=== PATIENT | male | born 1960 | race Two or more races ===

== ENCOUNTER 2018-01-16 13:01 | Outpatient (CLI) | payer OTHER ==
--- NOTE | 2018-01-16 15:03 | Diagnostic Imaging Report ---
Clinical Indication: Left lower quadrant pain Technique: Patient given oral contrast. IV administration nonionic contrast. Venous phase spiral acquisition obtained through the abdomen and pelvis. Multiplanar reconstructions were generated. Total dose length product 908.76 mGycm. CTDIvol(s) 18.6 mGy. Dose reduction achieved using automated exposure control Comparison: none Findings: There is fairly extensive colonic diverticulosis. No evidence of diverticulitis. There is equivocal mild wall thickening of the ascending and proximal transverse colon, although this is probably just an artifact of under distention. There is also equivocal slight wall thickening of the mid sigmoid colon, could likewise represent an artifact of under distention or could indicate some circular muscle hypertrophy. No pericolonic stranding to suggest colitis or diverticulitis No small bowel distention. Contrast is seen to have traversed the entirety of the GI tract. The appendix is not visualized; surgical clips and aaron adjacent to the cecum likely. Indicate prior appendectomy. No small bowel wall thickening. The distal esophagus, stomach, duodenum are unremarkable. The liver, gallbladder, bile ducts, pancreas, spleen, adrenals are unremarkable. There is a small cyst coming off of the upper pole of the right kidney another off of the lower pole. The kidneys demonstrate no other parenchymal abnormalities. No calculi or hydronephrosis. There is slight perinephric fat stranding, left greater than right. No pelvic mass or adenopathy. There are small fat-containing bilateral inguinal hernias. No retroperitoneal or mesenteric mass or adenopathy. The included lung bases are clear. The bones demonstrate degenerative spondylosis changes. Impression: No definite acute abnormality Equivocal mild wall thickening of the descending and proximal transverse colon. Most likely artifact of under distention, could indicate mild colitis if real Diverticulosis. No evidence of diverticulitis. Equivocal mild wall thickening of the mid sigmoid colon probably reflects combination of under distention and possible mild circular muscle hypertrophy related to the diverticulosis Bilateral perinephric fat stranding. This is a nonspecific finding, most likely chronic but could indicate acute pyelonephritis. Correlation with urinalysis is recommended Findings noted, including degenerative spondylosis, small fat-containing bilateral inguinal hernias, right renal cysts Findings discussed by phone with Dr. Espinoza at the time of interpretation The CT scanner at [facility] is accredited by the [employer] and the scans are performed using protocols designed to limit radiation exposure to as low as reasonably achievable to attain images of sufficient resolution adequate for diagnostic evaluation.
== END 2018-01-16 15:01 | disposition home or self-care (01) ==
LOC: CAT 13:01
DX: R10.32 Left lower quadrant pain (principal); K57.90 Diverticulosis of intestine, part unspecified, without perforation or abscess without bleeding; M47.9 Spondylosis, unspecified; K40.20 Bilateral inguinal hernia, without obstruction or gangrene, not specified as recurrent; N20.0 Calculus of kidney
CPT/HCPCS: 74177; Q9967